=== PATIENT | female | born 1995 | race Caucasian/White ===

== ENCOUNTER 2018-05-25 06:33 | Emergency (ER) | payer BC | END 2018-05-25 07:19 | disposition home or self-care (01) | LOC: FTE 06:33 | DX: J06.9 Acute upper respiratory infection, unspecified (principal); Z33.1 Pregnant state, incidental | CPT/HCPCS: 81025; 99282 ==

== ENCOUNTER 2018-11-14 05:41 | Outpatient (CLI) | payer BC | END 2018-11-14 09:02 | disposition home or self-care (01) | LOC: OBT 05:41 → L-D 05:44 → OBT 09:02 | DX: O62.9 Abnormality of forces of labor, unspecified (principal); Z3A.29 29 weeks gestation of pregnancy | CPT/HCPCS: 76817; 76818 ==

== ENCOUNTER 2018-11-14 09:08 | Emergency (ER) | payer BC | END 2018-11-14 10:21 | disposition home or self-care (01) | LOC: E/R 09:08 | DX: O99.513 Diseases of the respiratory system complicating pregnancy, third trimester (principal); J06.9 Acute upper respiratory infection, unspecified; Z3A.30 30 weeks gestation of pregnancy | CPT/HCPCS: 99282 ==

== ENCOUNTER 2018-12-21 17:51 | Outpatient (CLI) | payer BC ==
[2018-12-21 20:03] LABS: ADD UMIC YES; UR ASCORBIC ACID NEGATIVE (NEGATIVE); UR BILIRUBIN (Dip) NEGATIVE (NEGATIVE); UR BLOOD (Dip) NEGATIVE (NEGATIVE); UR CLARITY SLIGHTLY CLOUDY (CLEAR); UR COLOR YELLOW (YELLOW); UR GLUCOSE (Dip) 1+ mg/dL (NEGATIVE); UR KETONES (Dip) NEGATIVE (NEGATIVE); UR LEUKOCYTE ESTERASE (Dip) 1+ Leu/ul (NEGATIVE); UR MUCUS FEW /HPF (NONE SEEN); UR NITRITE (Dip) NEGATIVE (NEGATIVE); UR RBC 1 /HPF (0-5); UR SPECIFIC GRAVITY (Dip) 1.016 (1.003-1.030); UR SQUAMOUS EPITHELIAL CELL FEW /HPF (FEW); UR TOTAL PROTEIN (Dip) NEGATIVE (NEGATIVE); UR UROBILINOGEN (Dip) NEGATIVE (NEGATIVE); UR WBC 5 /HPF (0-5)
[2018-12-21 20:26] LABS: ADD MAN DIFF? NO
[2018-12-21 20:28] LABS: BASOPHILS % 0.2 % (0.0-2.0); EOSINOPHILS # 0.1 10^3/ul (0.0-0.5); EOSINOPHILS % 0.7 % (0.0-7.0); HEMATOCRIT 39.8 % (37.0-47.0); LYMPHOCYTES # 2.1 10^3/ul (0.8-2.9); LYMPHOCYTES % 16.8 % (15.0-51.0); MEAN CORPUSCULAR HEMOGLOBIN 30.3 pg (29.0-33.0); MEAN CORPUSCULAR HGB CONC 32.7 g/dl (32.0-37.0); MEAN CORPUSCULAR VOLUME 92.8 fl (82.0-101.0); MEAN PLATELET VOLUME 10.1 fl (7.4-10.4); MONOCYTE # 1.1 10^3/ul (0.3-0.9); MONOCYTES % 9.2 % (0.0-11.0); NEUTROPHIL # 8.8 10^3/ul (1.6-7.5); NEUTROPHILS % 72.4 % (39.0-77.0); PLATELET COUNT 269 10^3/UL (140-415); RED BLOOD COUNT 4.29 10^6/ul (4.20-5.40); RED CELL DISTRIBUTION WIDTH 12.1 % (11.5-14.5)
[2018-12-21 20:28] LABS: WHITE BLOOD COUNT 12.2 10^3/ul (4.8-10.8)
[2018-12-21 20:48] LABS: ALANINE AMINOTRANSFERASE 25 IU/L (13-69); ALBUMIN 3.3 g/dl (3.3-4.9); ALBUMIN/GLOBULIN RATIO 1.06; ALKALINE PHOSPHATASE 125 IU/L (42-121); ANION GAP 8 (5-13); ASPARTATE AMINO TRANSFERASE 28 IU/L (15-46); BILIRUBIN,INDIRECT 0.3 mg/dl (0-1.1); BILIRUBIN,TOTAL 0.3 mg/dl (0.2-1.3); BLOOD UREA NITROGEN 9 mg/dl (7-20); CARBON DIOXIDE 21 mmol/L (21-31); CHLORIDE 108 mmol/L (97-110); CREATININE 0.56 mg/dl (0.44-1.00); Estimated GFR > 60 mL/min (>60); GLUCOSE 88 mg/dl (70-220); PARTIAL THROMBOPLASTIN TIME 26.4 Sec (23.0-35.0); POTASSIUM 3.5 mmol/L (3.5-5.1); PROTIME 12.3 Sec (11.9-14.9); SODIUM 137 mmol/L (135-144); TOTAL PROTEIN 6.4 g/dl (6.1-8.1); URIC ACID 3.5 mg/dl (3.1-7.9)
[2018-12-21] MEDS: ACETAMINOPHEN 500 MG TAB PO (21:40)
== END 2018-12-21 21:45 | disposition home or self-care (01) ==
LOC: OBT 17:51 → L-D 17:51 → OBT 21:45
DX: O26.893 Other specified pregnancy related conditions, third trimester (principal); R51 Headache; R42 Dizziness and giddiness; H53.19 Other subjective visual disturbances; R10.13 Epigastric pain; Z3A.35 35 weeks gestation of pregnancy
CPT/HCPCS: 76815; 76818; 80053; 81001; 84560; 85025; 85610; 85730

== ENCOUNTER 2018-12-23 08:58 | Outpatient (CLI) | payer BC ==
[2018-12-23 09:28] LABS: COLLECTION PERIOD 24 hrs
[2018-12-23] MEDS: ACETAMINOPHEN 325 MG TAB PO (09:54)
[2018-12-23 10:02] LABS: ADD MAN DIFF? NO
[2018-12-23 10:09] LABS: WHITE BLOOD COUNT 10.8 10^3/ul (4.8-10.8)
[2018-12-23 10:09] LABS: BASOPHILS % 0.4 % (0.0-2.0); EOSINOPHILS # 0.1 10^3/ul (0.0-0.5); EOSINOPHILS % 0.6 % (0.0-7.0); HEMOGLOBIN 12.9 g/dl (12.0-16.0); LYMPHOCYTES # 1.5 10^3/ul (0.8-2.9); LYMPHOCYTES % 13.6 % (15.0-51.0); MEAN CORPUSCULAR HEMOGLOBIN 30.3 pg (29.0-33.0); MEAN CORPUSCULAR HGB CONC 33.1 g/dl (32.0-37.0); MEAN CORPUSCULAR VOLUME 91.5 fl (82.0-101.0); MEAN PLATELET VOLUME 10.2 fl (7.4-10.4); MONOCYTE # 0.6 10^3/ul (0.3-0.9); MONOCYTES % 5.5 % (0.0-11.0); NEUTROPHIL # 8.6 10^3/ul (1.6-7.5); NEUTROPHILS % 79.3 % (39.0-77.0); PLATELET COUNT 269 10^3/UL (140-415); RED BLOOD COUNT 4.26 10^6/ul (4.20-5.40); RED CELL DISTRIBUTION WIDTH 12.1 % (11.5-14.5)
[2018-12-23 10:25] LABS: ALANINE AMINOTRANSFERASE 20 IU/L (13-69); ALBUMIN/GLOBULIN RATIO 0.96; ALKALINE PHOSPHATASE 126 IU/L (42-121); ANION GAP 7 (5-13); ASPARTATE AMINO TRANSFERASE 28 IU/L (15-46); BILIRUBIN,TOTAL 0.5 mg/dl (0.2-1.3); BLOOD UREA NITROGEN 6 mg/dl (7-20); CALCIUM 8.9 mg/dl (8.4-10.2); CARBON DIOXIDE 23 mmol/L (21-31); CHLORIDE 107 mmol/L (97-110); CREATININE 0.57 mg/dl (0.44-1.00); Estimated GFR > 60 mL/min (>60); GLUCOSE 89 mg/dl (70-220); POTASSIUM 3.9 mmol/L (3.5-5.1); SODIUM 137 mmol/L (135-144)
[2018-12-23 10:26] LABS: ALBUMIN 3.1 g/dl (3.3-4.9); BILIRUBIN,INDIRECT 0.5 mg/dl (0-1.1); TOTAL PROTEIN 6.3 g/dl (6.1-8.1)
[2018-12-23 10:28] LABS: VOLUME 2900 mls
[2018-12-23 10:50] LABS: COLLECTION PERIOD 24 hrs; SCRET 0.57 mg/dl (0.44-1.00); VOLUME 2900 ml/24hrs
[2018-12-23 11:45] LABS: CREATININE CLEARANCE 212.3 mls/min (84.0-162.0)
== END 2018-12-23 11:45 | disposition home or self-care (01) ==
LOC: OBT 08:58 → L-D 09:02 → OBT 11:45
DX: O26.893 Other specified pregnancy related conditions, third trimester (principal); R51 Headache; H53.8 Other visual disturbances; Z3A.35 35 weeks gestation of pregnancy
CPT/HCPCS: 76818; 80053; 82575; 84156; 84560; 85025

== ENCOUNTER 2019-01-01 09:13 | Outpatient (CLI) | payer BC ==
[2019-01-01 09:44] LABS: ADD MAN DIFF? NO
[2019-01-01 09:50] LABS: BASOPHILS % 0.2 % (0.0-2.0); EOSINOPHILS # 0.1 10^3/ul (0.0-0.5); EOSINOPHILS % 0.6 % (0.0-7.0); HEMATOCRIT 37.6 % (37.0-47.0); HEMOGLOBIN 12.4 g/dl (12.0-16.0); LYMPHOCYTES # 1.7 10^3/ul (0.8-2.9); LYMPHOCYTES % 18.8 % (15.0-51.0); MEAN PLATELET VOLUME 9.9 fl (7.4-10.4); MONOCYTE # 0.8 10^3/ul (0.3-0.9); MONOCYTES % 8.2 % (0.0-11.0); NEUTROPHIL # 6.6 10^3/ul (1.6-7.5); NEUTROPHILS % 71.4 % (39.0-77.0); PLATELET COUNT 257 10^3/UL (140-415); RED BLOOD COUNT 4.13 10^6/ul (4.20-5.40); RED CELL DISTRIBUTION WIDTH 12.1 % (11.5-14.5)
[2019-01-01 09:50] LABS: WHITE BLOOD COUNT 9.3 10^3/ul (4.8-10.8)
[2019-01-01 09:52] LABS: COLLECTION PERIOD 24 hrs
[2019-01-01 10:08] LABS: ALANINE AMINOTRANSFERASE 20 IU/L (13-69); ALBUMIN 2.9 g/dl (3.3-4.9); ALBUMIN/GLOBULIN RATIO 0.93; ALKALINE PHOSPHATASE 123 IU/L (42-121); ANION GAP 7 (5-13); ASPARTATE AMINO TRANSFERASE 23 IU/L (15-46); BILIRUBIN,INDIRECT 0.4 mg/dl (0-1.1); BILIRUBIN,TOTAL 0.4 mg/dl (0.2-1.3); BLOOD UREA NITROGEN 10 mg/dl (7-20); CALCIUM 8.6 mg/dl (8.4-10.2); CARBON DIOXIDE 23 mmol/L (21-31); CHLORIDE 107 mmol/L (97-110); CREATININE 0.56 mg/dl (0.44-1.00); Estimated GFR > 60 mL/min (>60); GLUCOSE 94 mg/dl (70-220); POTASSIUM 3.9 mmol/L (3.5-5.1); SODIUM 137 mmol/L (135-144); URIC ACID 3.7 mg/dl (3.1-7.9)
[2019-01-01 10:10] LABS: INR 0.92; PARTIAL THROMBOPLASTIN TIME 27.1 Sec (23.0-35.0); PROTIME 12.5 Sec (11.9-14.9)
[2019-01-01 10:25] LABS: COLLECTION PERIOD 24 hrs; SCRET 0.56 mg/dl (0.44-1.00); VOLUME 2300 ml/24hrs; VOLUME 2300 mls
[2019-01-01 10:26] LABS: CREATININE CLEARANCE 234.1 mls/min (84.0-162.0); CREATININE,URINE RANDOM 82.08 mg/dl (20-320)
[2019-01-01] MEDS ORDERED: LIDOCAINE 2% (SDV) 5 ML INJ (11:43)
== END 2019-01-01 12:00 | disposition home or self-care (01) ==
LOC: OBT 09:13 → L-D 09:13 → OBT 12:00
DX: O13.3 Gestational [pregnancy-induced] hypertension without significant proteinuria, third trimester (principal); Z3A.36 36 weeks gestation of pregnancy
CPT/HCPCS: 76818; 80053; 82575; 84156; 84560; 85025; 85384; 85610; 85730

== ENCOUNTER 2019-01-11 10:59 | Inpatient (IN) | payer BC ==
[2019-01-11] MEDS ORDERED: LACTATED RINGER'S 1,000 ML IV (11:29)
[2019-01-11] MEDS ORDERED: OXYTOCIN 30 UNITS/LR 500 ML IV (11:30)
[2019-01-11] MEDS ORDERED: IBUPROFEN 600 MG TAB PO (11:30)
[2019-01-11] MEDS ORDERED: CARBOPROST 250 MCG INJ IM (11:30)
[2019-01-11] MEDS ORDERED: MISOPROSTOL 200 MCG TAB PR (11:30)
[2019-01-11] MEDS ORDERED: LIDOCAINE 1% (MPF) 30 ML INJ INJ (11:30)
[2019-01-11] MEDS ORDERED: METHYLERGONOVINE 0.2 MG INJ IM (11:30)
[2019-01-11] MEDS: LACTATED RINGER'S 1,000 ML IV ×2 (11:57→18:55)
[2019-01-11 12:18] LABS: ADD MAN DIFF? NO
[2019-01-11 12:25] LABS: COLLECTION PERIOD 24 hrs
[2019-01-11 12:30] LABS: WHITE BLOOD COUNT 10.2 10^3/ul (4.8-10.8)
[2019-01-11 12:30] LABS: BASOPHILS % 0.4 % (0.0-2.0); EOSINOPHILS # 0.1 10^3/ul (0.0-0.5); EOSINOPHILS % 0.5 % (0.0-7.0); HEMATOCRIT 38.9 % (37.0-47.0); HEMOGLOBIN 13.2 g/dl (12.0-16.0); LYMPHOCYTES # 1.6 10^3/ul (0.8-2.9); LYMPHOCYTES % 15.5 % (15.0-51.0); MEAN CORPUSCULAR HEMOGLOBIN 30.7 pg (29.0-33.0); MEAN CORPUSCULAR HGB CONC 33.9 g/dl (32.0-37.0); MEAN CORPUSCULAR VOLUME 90.5 fl (82.0-101.0); MEAN PLATELET VOLUME 10.1 fl (7.4-10.4); MONOCYTE # 0.6 10^3/ul (0.3-0.9); MONOCYTES % 6.1 % (0.0-11.0); NEUTROPHIL # 7.8 10^3/ul (1.6-7.5); NEUTROPHILS % 76.8 % (39.0-77.0); PLATELET COUNT 284 10^3/UL (140-415); RED CELL DISTRIBUTION WIDTH 12.2 % (11.5-14.5)
[2019-01-11 12:31] LABS: ADD UMIC YES; UR ASCORBIC ACID NEGATIVE (NEGATIVE); UR BACTERIA FEW /HPF (NONE SEEN); UR BILIRUBIN (Dip) NEGATIVE (NEGATIVE); UR BLOOD (Dip) NEGATIVE (NEGATIVE); UR CLARITY CLOUDY (CLEAR); UR COLOR YELLOW (YELLOW); UR GLUCOSE (Dip) NEGATIVE (NEGATIVE); UR KETONES (Dip) NEGATIVE (NEGATIVE); UR LEUKOCYTE ESTERASE (Dip) 2+ Leu/ul (NEGATIVE); UR NITRITE (Dip) NEGATIVE (NEGATIVE); UR RBC 3 /HPF (0-5); UR SPECIFIC GRAVITY (Dip) 1.009 (1.003-1.030); UR SQUAMOUS EPITHELIAL CELL FEW /HPF (FEW); UR TOTAL PROTEIN (Dip) NEGATIVE (NEGATIVE); UR UROBILINOGEN (Dip) NEGATIVE (NEGATIVE); UR WBC 7 /HPF (0-5)
[2019-01-11 12:43] LABS: INR 0.94; PARTIAL THROMBOPLASTIN TIME 28.3 Sec (23.0-35.0); PROTIME 12.7 Sec (11.9-14.9)
[2019-01-11] MEDS: MISOPROSTOL 50 MCG CAPSULE PO ×3 (12:43→21:33)
[2019-01-11 12:55] LABS: ALANINE AMINOTRANSFERASE 20 IU/L (13-69); ALBUMIN 3.5 g/dl (3.3-4.9); ALBUMIN/GLOBULIN RATIO 1.09; ALKALINE PHOSPHATASE 168 IU/L (42-121); ANION GAP 9 (5-13); ASPARTATE AMINO TRANSFERASE 29 IU/L (15-46); BILIRUBIN,INDIRECT 0.4 mg/dl (0-1.1); BILIRUBIN,TOTAL 0.4 mg/dl (0.2-1.3); BLOOD UREA NITROGEN 10 mg/dl (7-20); CARBON DIOXIDE 23 mmol/L (21-31); CHLORIDE 108 mmol/L (97-110); CREATININE 0.64 mg/dl (0.44-1.00); Estimated GFR > 60 mL/min (>60); GLUCOSE 110 mg/dl (70-220); SODIUM 140 mmol/L (135-144); TOTAL PROTEIN 6.7 g/dl (6.1-8.1)
[2019-01-11 13:05] LABS: VOLUME 2250 ml/24hrs; VOLUME 2250 mls
[2019-01-11 13:19] LABS: 24HR URINE TOTAL PROTEIN 202.5 mg/24hrs (42.0-225.0)
[2019-01-11 13:20] LABS: COLLECTION PERIOD 24 hrs; CREATININE,URINE RANDOM 65.22 mg/dl (20-320)
[2019-01-11 13:21] LABS: CREATININE CLEARANCE 159.2 mls/min (84.0-162.0); SCRET 0.64 mg/dl (0.44-1.00)
[2019-01-11 14:15] LABS: HEPATITIS B SURFACE ANTIGEN NEGATIVE (NEGATIVE)
[2019-01-11 15:50] LABS: RAPID PLASMA REAGIN NONREACTIVE (NR)
[2019-01-12] MEDS: LACTATED RINGER'S 1,000 ML IV ×3 (03:21→21:06)
[2019-01-12] MEDS: MISOPROSTOL 50 MCG CAPSULE PO ×2 (04:07→08:28)
[2019-01-12] MEDS: OXYTOCIN 30 UNITS/LR 500 ML IV (13:23)
[2019-01-12] MEDS ORDERED: KETOROLAC 30 MG INJ IV (17:00)
[2019-01-12] MEDS ORDERED: DIPHENHYDRAMINE 50 MG INJ IV (17:00)
[2019-01-12] MEDS ORDERED: NALOXONE (0.4 MG/ML) INJ IV (17:00)
[2019-01-12] MEDS ORDERED: HYDROmorphONE 0.5 MG/0.5 ML SYG IV ×2 (17:00)
[2019-01-13] MEDS: FENTAnyl 2MCG/ML-ROPIV 0.2% 100 ML BAG EPI (03:43)
[2019-01-13] MEDS: LACTATED RINGER'S 1,000 ML IV ×3 (05:51→20:18)
[2019-01-13 06:12] LABS: ADD MAN DIFF? NO
[2019-01-13 06:19] LABS: BASOPHIL # 0.1 10^3/ul (0.0-0.1); BASOPHILS % 0.3 % (0.0-2.0); EOSINOPHILS # 0.1 10^3/ul (0.0-0.5); EOSINOPHILS % 0.3 % (0.0-7.0); HEMATOCRIT 40.1 % (37.0-47.0); HEMOGLOBIN 13.2 g/dl (12.0-16.0); LYMPHOCYTES # 1.5 10^3/ul (0.8-2.9); LYMPHOCYTES % 10.4 % (15.0-51.0); MEAN CORPUSCULAR HEMOGLOBIN 30.4 pg (29.0-33.0); MEAN CORPUSCULAR HGB CONC 32.9 g/dl (32.0-37.0); MEAN CORPUSCULAR VOLUME 92.4 fl (82.0-101.0); MEAN PLATELET VOLUME 10.2 fl (7.4-10.4); MONOCYTES % 6.7 % (0.0-11.0); NEUTROPHIL # 11.9 10^3/ul (1.6-7.5); NEUTROPHILS % 81.8 % (39.0-77.0); PLATELET COUNT 252 10^3/UL (140-415); RED BLOOD COUNT 4.34 10^6/ul (4.20-5.40); RED CELL DISTRIBUTION WIDTH 12.3 % (11.5-14.5)
[2019-01-13 06:19] LABS: WHITE BLOOD COUNT 14.6 10^3/ul (4.8-10.8)
[2019-01-13 06:39] LABS: INR 0.94; PROTIME 12.7 Sec (11.9-14.9)
[2019-01-13 06:40] LABS: PARTIAL THROMBOPLASTIN TIME 27.8 Sec (23.0-35.0)
[2019-01-13 06:42] LABS: ALANINE AMINOTRANSFERASE 18 IU/L (13-69); ALBUMIN 2.8 g/dl (3.3-4.9); ALBUMIN/GLOBULIN RATIO 0.84; ALKALINE PHOSPHATASE 150 IU/L (42-121); ANION GAP 4 (5-13); ASPARTATE AMINO TRANSFERASE 26 IU/L (15-46); BILIRUBIN,INDIRECT 0.7 mg/dl (0-1.1); BILIRUBIN,TOTAL 0.7 mg/dl (0.2-1.3); BLOOD UREA NITROGEN 9 mg/dl (7-20); CALCIUM 9.5 mg/dl (8.4-10.2); CARBON DIOXIDE 25 mmol/L (21-31); CHLORIDE 108 mmol/L (97-110); CREATININE 0.71 mg/dl (0.44-1.00); Estimated GFR > 60 mL/min (>60); GLUCOSE 79 mg/dl (70-220); SODIUM 137 mmol/L (135-144); TOTAL PROTEIN 6.1 g/dl (6.1-8.1)
[2019-01-13] MEDS: ONDANSETRON 4 MG INJ IV (09:14)
[2019-01-13] MEDS: OXYTOCIN 30 UNITS/LR 500 ML IV ×2 (10:27→15:44)
[2019-01-13] MEDS ORDERED: LANOLIN HPA 1 PKT TOP (11:00)
[2019-01-13] MEDS ORDERED: HYDROCODONE/APAP (5/325) TAB PO (11:00)
[2019-01-13] MEDS ORDERED: OXYTOCIN 30 UNITS/LR 500 ML IV (11:00)
[2019-01-13] MEDS ORDERED: DIPHENHYDRAMINE 50 MG INJ IV (11:00)
[2019-01-13] MEDS ORDERED: BENZOCAINE 20% 56 ML SPRAY TOP (11:00)
[2019-01-13] MEDS ORDERED: DIPHENHYDRAMINE 25 MG CAP PO (11:00)
[2019-01-13] MEDS ORDERED: CARBOPROST 250 MCG INJ IM (11:00)
[2019-01-13] MEDS ORDERED: ACETAMINOPHEN 325 MG TAB PO (11:00)
[2019-01-13] MEDS ORDERED: ONDANSETRON 4 MG INJ IV (11:00)
[2019-01-13] MEDS ORDERED: METHYLERGONOVINE 0.2 MG INJ IM (11:00)
[2019-01-13] MEDS ORDERED: MISOPROSTOL 200 MCG TAB PR (11:00)
[2019-01-13] MEDS ORDERED: ONDANSETRON 4 MG TAB PO (11:00)
[2019-01-13] MEDS ORDERED: MAGNESIUM HYDROXIDE 30ML CUP PO (11:00)
[2019-01-13 12:13] LABS: ADD MAN DIFF? NO
[2019-01-13 12:19] LABS: BASOPHILS % 0.1 % (0.0-2.0); EOSINOPHILS % 0.1 % (0.0-7.0); HEMATOCRIT 39.4 % (37.0-47.0); HEMOGLOBIN 12.9 g/dl (12.0-16.0); LYMPHOCYTES # 0.9 10^3/ul (0.8-2.9); LYMPHOCYTES % 4.8 % (15.0-51.0); MEAN CORPUSCULAR HEMOGLOBIN 30.8 pg (29.0-33.0); MEAN CORPUSCULAR HGB CONC 32.7 g/dl (32.0-37.0); MEAN PLATELET VOLUME 10.3 fl (7.4-10.4); MONOCYTE # 1.1 10^3/ul (0.3-0.9); MONOCYTES % 5.7 % (0.0-11.0); NEUTROPHIL # 16.9 10^3/ul (1.6-7.5); NEUTROPHILS % 88.8 % (39.0-77.0); PLATELET COUNT 223 10^3/UL (140-415); RED BLOOD COUNT 4.19 10^6/ul (4.20-5.40); RED CELL DISTRIBUTION WIDTH 12.4 % (11.5-14.5)
[2019-01-13 12:19] LABS: WHITE BLOOD COUNT 19.1 10^3/ul (4.8-10.8)
[2019-01-13] MEDS: IBUPROFEN 800 MG TAB PO ×3 (14:01→23:35)
[2019-01-13] MEDS: LACTATED RINGER'S 1,000 ML IV* ×2 (16:00→20:18)
[2019-01-13] MEDS: ACETAMINOPHEN 325 MG TAB PO (20:17)
[2019-01-14] MEDS: LACTATED RINGER'S 1,000 ML IV* ×3 (02:46→18:46)
[2019-01-14] MEDS: LACTATED RINGER'S 1,000 ML IV (03:29)
[2019-01-14] MEDS: IBUPROFEN 800 MG TAB PO ×4 (05:43→23:40)
[2019-01-14] MEDS: DIBUCAINE 1% 30 GM OINT TOP (11:39)
[2019-01-14] MEDS: SENNA/DOCUSATE NA (8.6MG/50MG) TAB PO (11:39)
[2019-01-14] MEDS: HYDROCODONE/APAP (5/325) TAB PO ×2 (17:41→23:40)
[2019-01-15] MEDS: LACTATED RINGER'S 1,000 ML IV* ×2 (02:46→10:46)
[2019-01-15] MEDS: IBUPROFEN 800 MG TAB PO ×2 (06:18→12:07)
[2019-01-15] MEDS: HYDROCODONE/APAP (5/325) TAB PO ×2 (06:18→12:07)
[2019-01-15 08:01] LABS: ADD MAN DIFF? NO
[2019-01-15 08:04] LABS: WHITE BLOOD COUNT 12.9 10^3/ul (4.8-10.8)
[2019-01-15 08:04] LABS: BASOPHILS % 0.3 % (0.0-2.0); EOSINOPHILS # 0.2 10^3/ul (0.0-0.5); EOSINOPHILS % 1.8 % (0.0-7.0); HEMOGLOBIN 11.1 g/dl (12.0-16.0); LYMPHOCYTES # 2.5 10^3/ul (0.8-2.9); MEAN CORPUSCULAR HEMOGLOBIN 30.6 pg (29.0-33.0); MEAN CORPUSCULAR HGB CONC 32.6 g/dl (32.0-37.0); MEAN CORPUSCULAR VOLUME 93.7 fl (82.0-101.0); MEAN PLATELET VOLUME 10.2 fl (7.4-10.4); MONOCYTES % 7.8 % (0.0-11.0); NEUTROPHIL # 9.1 10^3/ul (1.6-7.5); NEUTROPHILS % 70.4 % (39.0-77.0); PLATELET COUNT 234 10^3/UL (140-415); RED BLOOD COUNT 3.63 10^6/ul (4.20-5.40); RED CELL DISTRIBUTION WIDTH 12.7 % (11.5-14.5)
[2019-01-15] MEDS: MEASLES,MUMPS,RUBELLA VACCINE INJ SC* (09:08)
[2019-01-15] MEDS: VARICELLA VACCINE LIVE/PF 1,350 UNIT/0.5 ML ML SC* (09:08)
[2019-01-15] MEDS: DIPHTH/TET/ACEL PERTUSS (ADULT) 0.5 ML VIAL IM* (12:09)
== END 2019-01-15 14:00 | disposition home or self-care (01) | DRG 807 ==
LOC: L-D 10:59 → PP1 01-13 15:47
PROC: 10907ZC Drainage of Amniotic Fluid, Therapeutic from Products of Conception, Via Natural or Artificial Opening (ICD-10-PCS; 2019-01-12)
PROC: 10E0XZZ Delivery of Products of Conception, External Approach (ICD-10-PCS; principal; 2019-01-13)
PROC: 0UQMXZZ Repair Vulva, External Approach (ICD-10-PCS; 2019-01-13)
PROC: 0UQGXZZ Repair Vagina, External Approach (ICD-10-PCS; 2019-01-13)
DX: O14.94 Unspecified pre-eclampsia, complicating childbirth (principal); Z37.0 Single live birth; O70.0 First degree perineal laceration during delivery; O99.214 Obesity complicating childbirth; E66.01 Morbid (severe) obesity due to excess calories; O90.89 Other complications of the puerperium, not elsewhere classified; D72.829 Elevated white blood cell count, unspecified; Z3A.38 38 weeks gestation of pregnancy; Z23 Encounter for immunization
CPT/HCPCS: 62322; 76815; 80053; 81001; 82575; 84156; 84560; 85025; 85384; 85610; 85730; 86592; 86850; 86900; 86901; 87340; 88307; 90715; 90716